=== PATIENT | male | born 1990 | race Caucasian/White ===

== ENCOUNTER 2022-11-03 07:19 | Emergency (ER) | payer SELFPAY ==
[~2022-11-03] VITALS: Ht 165.1 cm; Wt 105.5 kg
[2022-11-03 07:37] VITALS: BP 123/83; PULSE 76; TEMP 96.7; O2SAT 98
[2022-11-03] MEDS ORDERED: KETOROLAC 30 MG/ML VIAL IVP ONE (07:45)
[2022-11-03] MEDS ORDERED: ONDANSETRON 4 MG/2 ML VIAL IVP ONE (07:45)
[2022-11-03 08:13] LABS: BASOPHILS % (AUTO) 0.2 % (0.0-2.0); EOSINOPHILS % (AUTO) 0.1 % (0.0-4.0); HEMATOCRIT 46.1 % (36-52); HEMOGLOBIN 15.7 g/dL (12.0-18.0); LYMPHOCYTES # (AUTO) 1.4 K/uL (2.0-11.5); LYMPHOCYTES % (AUTO) 12.5 % (20.5-51.1); MEAN CORPUSCULAR HEMOGLOBIN 30 pg (27-31); MEAN CORPUSCULAR HGB CONC 34 g/dL (33-37); MEAN CORPUSCULAR VOLUME 86.9 fL (80-94); MONOCYTES # (AUTO) 0.6 K/uL (0.8-1.0); MONOCYTES % (AUTO) 5.4 % (1.7-9.3); NEUTROPHILS # (AUTO) 9.2 K/uL (1.8-7.7); NEUTROPHILS % (AUTO) 81.8 % (42.2-75.2); PLATELET COUNT (AUTO) 258 K/uL (140-450); RED BLOOD CELL COUNT(AUTO) 5.31 MIL/uL (4.20-6.10); RED CELL DISTRIBUTION WIDTH 13.3 % (11.6-13.7); WHITE BLOOD COUNT (AUTO) 11.2 K/uL (4.8-10.8)
[2022-11-03 08:21] LABS: ALBUMIN 4.1 g/dL (3.4-5.0); ANION GAP 12.4 (8-16); CALCIUM 9.4 mg/dL (8.5-10.1); CARBON DIOXIDE 28.2 mmol/L (21-32); POTASSIUM 3.6 mmol/L (3.5-5.1); TOTAL BILIRUBIN 0.5 mg/dL (0.0-1.0); TOTAL PROTEIN, SERUM 8.3 g/dL (6.4-8.2)
[2022-11-03 08:58] LABS: APPEARANCE,URINE CLEAR (CLEAR); BILIRUBIN,URINE NEGATIVE (NEGATIVE); BLOOD, URINE TRACE-I (NEGATIVE); COLOR,URINE YELLOW (YELLOW); LEUKOCYTE ESTERASE ,URINE NEGATIVE (NEGATIVE); NITRITE, URINE NEGATIVE (NEGATIVE); PROTEIN,URINE TRACE (NEGATIVE); UGLUCOSE NEGATIVE (NEGATIVE); UROBILINOGEN,URINE 0.2 EU/dL (0.2 - 1)
[2022-11-03 09:06] LABS: RBC,URINE 0-5 /HPF (0-5); WBC,URINE 0-5 /HPF (0-5)
[2022-11-03 09:07] LABS: BACTERIA,URINE OCCASSIONAL /HPF (None Seen); MUCUS,URINE 1+ /LPF (None Seen); SQUAMOUS EPITHELIAL CELL,UR 0-3 (FEW) /LPF (0-3 (FEW))
[2022-11-03 09:34] VITALS: BP 117/68; PULSE 76; RESP 18; TEMP 98.3; O2SAT 96
== END 2022-11-03 09:33 | disposition home or self-care (01) ==
LOC: MED 07:19
DX: K76.0 Fatty (change of) liver, not elsewhere classified (principal); Z79.899 Other long term (current) drug therapy; Z90.49 Acquired absence of other specified parts of digestive tract
CPT/HCPCS: 36415; 76705; 80053; 81001; 83690; 85025; 96374; 96375; 99285; J1885; J2405; Q0092